=== PATIENT | female | born 1985 | race Caucasian/White ===

== ENCOUNTER 2024-03-16 06:26 | Day surgery (SDC) | payer BC, OTHER ==
[~2024-03-16 06:26] MED LIST: Sodium Chloride 0.9% 10 ML Syringe FLUSH PRN; Sodium Chloride 0.9% 2.5 ML Syringe FLUSH PRN; Sodium Chloride 0.9% 20 ML SDV IV PRN; ceFAZolin 2 GM in Sodium Chloride 0.9% 50 ML IV ONE
[2024-03-16] MEDS: Lactated Ringers 1,000 ML IV SCH (07:08)
[2024-03-16] MEDS ORDERED: Water For Injection, Sterile 20 ML ONE (07:15)
[2024-03-16] MEDS ORDERED: dexmedeTOMIDine HCl 200 MCG/2 ML SDV ONE (07:15)
[2024-03-16] MEDS ORDERED: fentaNYL 100 MCG/2 ML SDV ONE ×3 (07:18→08:47)
[2024-03-16] MEDS ORDERED: Propofol 200 MG/20 ML SDV ONE ×2 (07:18→07:45)
[2024-03-16] MEDS ORDERED: Bupivacaine 0.25% 30 ML SDV ONE (07:21)
[2024-03-16] MEDS ORDERED: Ropivacaine 0.5% 5 MG/ML 30 ML SDV ONE (07:21)
[2024-03-16] MEDS ORDERED: Bupivacaine 0.5% 30 ML SDV ONE (07:32)
[2024-03-16] MEDS ORDERED: Morphine 10 MG/ML SDV ONE (07:33)
[2024-03-16] MEDS ORDERED: Lidocaine 2% 11 ML Jelly Filled Syringe ONE (07:57)
[2024-03-16] MEDS ORDERED: Ketorolac 30 MG/ML SDV ONE (08:40)
[2024-03-16] MEDS ORDERED: Dexamethasone 4 MG/ML 5 ML MDV ONE (08:40)
[2024-03-16] MEDS ORDERED: Sugammadex Sodium 200 MG/2 ML VIAL IV ONE (08:40)
[2024-03-16] MEDS ORDERED: Ondansetron 4 MG/2 ML SDV ONE (08:40)
[2024-03-16] MEDS ORDERED: Rocuronium Bromide 50 MG/5 ML Syringe ONE (08:40)
[2024-03-16] MEDS ORDERED: Famotidine 20 MG/2 ML SDV ONE (08:43)
[2024-03-16 10:14] VITALS: PULSE 57
[2024-03-16 10:29] VITALS: BP 104/63
[2024-03-16] MEDS ORDERED: Albuterol 0.083% 2.5 MG/3 ML Neb Soln NEB PRN (10:47)
[2024-03-16] MEDS ORDERED: fentaNYL 50 MCG/ML SDV IVPUSH PRN (10:47)
[2024-03-16] MEDS ORDERED: Naloxone 0.4 MG/ML SDV IVPUSH PRN (10:47)
[2024-03-16] MEDS ORDERED: Morphine 2 MG/ML SYRINGE IVPUSH PRN (10:47)
[2024-03-16] MEDS ORDERED: Phenylephrine HCl In 0.9% NaCl 1 MG/10 ML Syringe IVPUSH PRN (10:47)
[2024-03-16] MEDS ORDERED: HYDROmorphone 1 MG/ML Syringe IVPUSH PRN (10:47)
[2024-03-16] MEDS ORDERED: Metoclopramide 10 MG/2 ML SDV IVPUSH PRN (10:47)
[2024-03-16] MEDS ORDERED: Ondansetron 4 MG/2 ML SDV IVPUSH PRN (10:47)
== END 2024-03-16 10:40 | disposition home or self-care (01) ==
LOC: MW.SDS 06:26
PROVIDERS: ATTEND Surgery
DX: K81.1 Chronic cholecystitis (principal); K82.8 Other specified diseases of gallbladder; E66.01 Morbid (severe) obesity due to excess calories; J45.909 Unspecified asthma, uncomplicated; Z86.16 Personal history of COVID-19; Z88.8 Allergy status to other drugs, medicaments and biological substances; Z68.42 Body mass index [BMI] 45.0-49.9, adult; Z79.899 Other long term (current) drug therapy
CPT/HCPCS: 47562; 64488; 81025; A9270; J0131; J0665; J1100; J1885; J2270; J2704; J2795; J3010; J3490; J7120; 00790; J2405

== ENCOUNTER 2024-08-11 17:44 | Emergency (ER) | payer BC ==
[2024-08-11 18:16] VITALS: BP 195/84; PULSE 87
[2024-08-11] MEDS: Lidocaine 1% 5 ML VIAL INJECT STA (19:12)
[2024-08-11] MEDS: Diphtheria,Pertussis(Acell),Tetanus Vaccine 0.5 ML Syringe IM ONE (19:12)
== END 2024-08-11 20:21 | disposition home or self-care (01) ==
LOC: MW.ED 17:44
DX: S61.216A Laceration without foreign body of right little finger without damage to nail, initial encounter (principal); Z23 Encounter for immunization; Z75.8 Other problems related to medical facilities and other health care; Z88.8 Allergy status to other drugs, medicaments and biological substances; W26.8XXA Contact with other sharp object(s), not elsewhere classified, initial encounter
CPT/HCPCS: 12001; 90471; 90715; 99282-25; J3490

== ENCOUNTER 2025-05-01 18:39 | Emergency (ER) | payer BC ==
[2025-05-01 19:36] LABS: APPEARANCE,URINE SLT CLOUDY; GLUCOSE,URINE NEGATIVE (NEGATIVE); OCCULT BLOOD,URINE LARGE (NEGATIVE)
[2025-05-01 19:36] LABS: BASOPHILS ABSOLUTE AUTO 0.06 K/uL (0.00-0.20); BASOPHILS PERCENT AUTO 0.6 % (0.0-1.0); EOSINOPHILS ABSOLUTE AUTO 0.32 K/uL (0.00-0.45); EOSINOPHILS PERCENT AUTO 3.4 % (0.0-6.0); IMMATURE GRAN ABSOLUTE AUTO 0.03 K/uL (0.00-0.05); IMMATURE GRAN PERCENT AUTO 0.3 % (0.0-0.4); LYMPHOCYTES ABSOLUTE AUTO 2.57 K/uL (1.00-4.80); LYMPHOCYTES PERCENT AUTO 27.1 % (24.0-44.0); MEAN PLATELET VOLUME 10.2 fL (9.4-12.3); MONOCYTES ABSOLUTE AUTO 0.59 K/uL (0.00-0.80); MONOCYTES PERCENT AUTO 6.2 % (0.0-8.0); NEUTROPHILS ABSOLUTE AUTO 5.92 K/uL (1.80-7.70); NEUTROPHILS PERCENT AUTO 62.4 % (41.0-71.0); NRBC ABSOLUTE 0.00 K/uL (0.00-0.02); NRBC PERCENT 0.0 /100WBC (0.0-0.2); PLATELET COUNT,PLT 318 K/uL (150-400); RED BLOOD CELL COUNT 4.22 M/uL (4.10-5.30); WHITE BLOOD CELL COUNT,WBC 9.49 K/uL (3.9-11.3)
[2025-05-01 20:10] LABS: A/G RATIO 1.0 (0.9-1.6); ALANINE AMINOTRANSFERASE,ALT 18.0 IU/L (14-63); ASPARTATE AMNIOTRANSFERASE,AST 11.0 IU/L (15-37); BILIRUBIN TOTAL 0.2 mg/dL (0.2-1.0); BLOOD UREA NITROGEN,BUN 18.0 mg/dL (7.0-18.0); CARBON DIOXIDE,CO2 26.4 mmol/L (21.0-32.0); CHLORIDE,CL 107.0 mmol/L (98-107); CREATININE 0.6 mg/dL (0.6-1.0); EST CRCL DRUG DOSING (CG) 111.03 mL/min; GLUCOSE RANDOM 113.0 mg/dL (74-106); POTASSIUM,K 3.6 mmol/L (3.5-5.1); PROTEIN TOTAL,TP 6.6 g/dL (6.4-8.2); SODIUM,NA 142.0 mmol/L (136-145)
[2025-05-01 20:25] LABS: ESTIMATED GFR 116.0 mL/min (>60)
[2025-05-01] MEDS ORDERED: Sodium Chloride 0.9% 2.5 ML Syringe FLUSH PRN (20:42)
[2025-05-01] MEDS ORDERED: Sodium Chloride 0.9% 10 ML Syringe FLUSH PRN (20:42)
[2025-05-01 20:52] LABS: EPITHELIAL CELLS,URINE RARE (NONE-FEW)
[2025-05-01] MEDS: Ketorolac 30 MG/ML SDV IVPUSH ONE (20:59)
[2025-05-01 23:24] VITALS: BP 141/77; PULSE 65
== END 2025-05-01 23:22 | disposition home or self-care (01) ==
LOC: MW.ED 18:39
DX: N83.202 Unspecified ovarian cyst, left side (principal); E86.0 Dehydration; R23.2 Flushing; R03.0 Elevated blood-pressure reading, without diagnosis of hypertension; F17.200 Nicotine dependence, unspecified, uncomplicated; Z79.899 Other long term (current) drug therapy
CPT/HCPCS: 36415; 76830; 76830-26; 80053; 81001; 83690; 84703; 85025; 96374; 99283; 99284-25; J1885